=== PATIENT | female | born 1955 | race Caucasian/White ===

== ENCOUNTER 2017-08-26 12:46 | Day surgery (SDC) | payer OTHER, SELFPAY ==
--- NOTE | 2017-08-24 09:56 | EKG12_ITS ---
Test Reason : PRE-OP Blood Pressure : / mmHG Vent. Rate : 058 BPM Atrial Rate : 058 BPM P-R Int : 176 ms QRS Dur : 086 ms QT Int : 422 ms P-R-T Axes : 040 024 018 degrees QTc Int : 414 ms Sinus bradycardia Poor R wave progression Confirmed by ESTER PEÑA, BOB ([id number]), video news editor WALT MANZO ([id number]) on 08/26/2017 2:41:24 PM Referred By: Jane Mckeon Confirmed By:BOB NORMAN MD
[2017-08-24 11:23] LABS: Hematocrit 41.8 % (37-47); Hemoglobin 13.9 g/dl (12.0-15.0); Mean Corp Hgb Conc 33.3 g/gl (32-36); Mean Corpuscular Hgb 29.4 pg (27.0-32.0); Mean Corpuscular Volume 88.4 fL (81-99); Mean Platelet Vol. 10.7 fl (6.2-12.0); Platelet Count 272 K/mm3 (150-450); RBC Distribution Width CV 13.1 % (11.6-14.6); RBC Distribution Width SD 42.1 fl (35.1-43.9); Red Blood Count 4.73 M/mm3 (4.2-5.4); White Blood Count 6.5 K/mm3 (4.4-11.0)
[2017-08-24 11:26] LABS: Prothrombin Time (Protime)PT. 12.9 SECONDS (11.7-14.9)
[2017-08-24 11:27] LABS: Partial Thromboplast Time 28.8 Seconds (24.1-36.2)
[2017-08-24 11:37] LABS: Scan Indicated on CBC? Y/N NO
[2017-08-24 11:51] LABS: Anion Gap 4 (5-15); BUN 15 mg/dL (7-18); BUN/Creat Ratio 15.1 RATIO (10-20); Calcium,Total 9.7 mg/dL (8.5-10.1); Chloride 105 mmol/L (98-107); Creatinine, Serum 0.99 mg/dL (0.55-1.02); EST Glomerular Filtration Rate 60 mL/min (>60); Est Glom Filt Rate - Afr Amer 73 mL/min (>60); Glucose 98 mg/dL (74-106); Potassium 3.7 mmol/L (3.5-5.1); Sodium Level 142 mmol/L (136-145)
[2017-08-26] VITALS (11 sets, daily range): BP systolic 118–168; BP diastolic 62–93; PULSE 63–94; RESP 16; TEMP 36.7–37.2; O2SAT 93–100; BMI 30.9
--- NOTE | 2017-08-26 14:05 | HYST_PTH ---
PATIENT: SUSAN RINCON LOC: [facility] [place] U#:[id number] AGE/SX: 62/F ROOM: RE08/26/[address]: Dr. Jane Mckeon MD : [id number] BED: DIS: 08/27/2017 SPEC #: [id number] RECD: 08/26/17 18:09 STATUS: CASSIE BRANDConnie #: [id number] AVERY: 08/26/17 14:[address]: Jane Mckeon DEPT: SURGICAL PATHOLOGY RECD BY: Armando Vilchis ENTERED: 08/27/17 11:04 SP TYPE: HYSTERECT OTHR DR: Dr. Inge Myles MD Tissues: Uterus, NOS Procedures: Surgery Specimen Level V HEADER OPERATION: Hysterectomy, Lap-assisted vaginal, BSO PRE-OP DIAGNOSIS: Personal history of breast cancer, cancer phobia TISSUE SUBMITTED: Uterus, tubes and ovaries MICROSCOPIC DIAGNOSIS Uterus, bilateral fallopian tubes and ovaries, vaginal hysterectomy and bilateral salpingo-oophorectomy: Cervix ? mild chronic inflammation. Endometrium ? cystic atrophic endometrium. Myometrium ? leiomyomas (0.5 and 5 cm in greatest dimension). Bilateral fallopian tubes - no pathologic diagnosis. Bilateral ovaries - no pathologic diagnosis. See comment. SJ:rg 08/28/17 COMMENT The loculated cystic area adjacent to the left ovary shows dilated blood vessels. MICROSCOPIC DESCRIPTION Slides are reviewed. GROSS DESCRIPTION Received in fixative is one container labeled with the patient's name and designated uterus, tubes and ovaries. The specimen consists of a hysterectomy specimen consisting of uterus, attached right fallopian tube and ovary, detached cervix, detached nodular mass and detached left fallopian tube and ovary. The uterus, detached nodular mass and cervix weigh in aggregate 114 gm. The cervix measures 4 x 2.5 x 2 cm. The ectocervical mucosa is unremarkable. The external os is oval in contour. The endocervical canal measures 4 cm in length and the endocervical mucosa is unremarkable. The body of the uterus measures 6 x 5 x 3.5 cm. The serosal surface is lozano, glistening. The triangular endometrial cavity measures 4 cm in length and 2.5 cm in width. The endometrium is lozano, glistening without any mass lesion and measures 0.1 cm in thickness. Sections of the uterine wall reveal one small nodular mass measuring 0.5 cm in diameter. The uterine wall measures up to 2 cm in thickness. The detached nodule measures 5 x 4 x 3.5 cm. A focal area of defect is noted at the lateral wall of the uterus most likely the site of the detached nodular mass. Sections of this mass reveal lozano whorled cut surfaces without areas of hemorrhage, necrosis or cystic degeneration. The right fallopian tube measures 6 cm in length and 0.5 cm in diameter. The fimbrial end is identified. No tubo-ovarian adhesions are noted. The right ovary measures 3 x 2 x 1 cm. Sections reveal unremarkable cut surfaces. The left fallopian tube measures 7.5 cm in length and 0.5 cm in diameter. The fimbrial end is identified. Focal tubo-ovarian adhesions are identified. The fallopian tube appears to be disrupted in the middle. The left ovary measures 3 x 2 x 1 cm. Sections reveal unremarkable cut surfaces. A multiloculated cyst is noted adjacent to the ovary measuring 1.5 cm in greatest dimension. Director Of Public Relations sections are submitted in 12 cassettes as follows: 1 - anterior cervix, 2 - posterior cervix, 3 & 4 - anterior uterine wall, 5 & 6 - posterior uterine wall, 7 ? smaller intramural mass, 8 & 9 ? detached nodular mass, 10 ? right fallopian tube and ovary, 11 ? left fallopian tube and ovary, 12 ? multiloculated cyst adjacent to the left ovary. / JAMIL:abby 08/27/17 TC:1 CPT: 06378
[2017-08-26] MEDS: Bupiv/Epi 0.5% Mpf 30 ML Vial (15:44)
[2017-08-26] MEDS: Ketorolac 30 MG/ML Syringe IV (20:11)
[2017-08-26] MEDS: Lactated Ringers 1,000 ML 125 ML IV (20:11)
--- NOTE | 2017-08-26 21:01 | PCM.OP.BLANK ---
Problem List (1) Fibroid, uterine Status: Chronic Qualifiers: Uterine leiomyoma location: intramural and subserous Qualified Code(s): D25.1 - Intramural leiomyoma of uterus; D25.2 - Subserosal leiomyoma of uterus Operative Report Date of Procedure: 08/26/17 PROCEDURE: Laparoscopic assisted vaginal hysterectomy. Bilateral salpingectomy Preoperative diagnosis: Personal history of malignant neoplasm of the breast Uterine fibroid Postop diagnosis: Personal history of malignant neoplasm of the breast Uterine fibroid Anesthesia: General DEDE Chairez and Octavio Gregory MD Surgeon: Jane Mckeon MD Assistants Tiara Fletcher, LANCE Greene, LANCE EBL 230 cc Complications: none Drains: Nicole draining clear yellow urine 600 cc for case Fluids: replacement LR Findings: On exam under anesthesia, the cervix appears well supported, parous, with a possible fibroid at anterior lip. At Laparoscopy: the uterus is normal sized, with an intramural and subserosal fibroid at the Right posterior lower uterine segment. There are no significant adhesions in the pelvis , but adhesions were noted between the bowel and the right abdominal sidewall extending from upper abdomen to lower abdomen. There are normal appearing fallopian tubes and ovaries bilaterally. PATH: Uterus, bilateral fallopian tubes . Detached cervix and detached fibroid sent . Narrative account: After the risks, benefits and alternatives of the procedure were reviewed with the patient , informed consent was obtained. The patient was taken to the Operative room with an IV running . She was positioned in the dorsal supine position on the operating table and given general anesthesia. Once asleep she was positioned to the dorsal lithotomy position with the arms tucked at the sides and prepped and draped in the usual sterile fashion. A Nicole catheter was inserted to drain the bladder. The weighted speculum was placed into the vagina and a single tooth tenaculum was placed at the cervix. A Nia cannula was inserted into the cervix and secured into placed with the single - toothed tenaculum. Attention was then turned to the anterior abdominal wall. the delivery table operator's gloves were changed and skin incisions were created at the infraumbilical and suprapubic skin and at a point approximately fci between the suprapubic and infraumbilical skin incisions. Local anesthesia was used to infiltrate the skin where the trocar incision sites were created. A transverse 5 mm infraumbilical skin incision , a transverse 5 mm suprapubic incision and an transverse 5 mm midline incision were created. A Veress needle was inserted in to the peritoneal cavity at the infraumbilical skin incision while maintaining upward traction of the anterior abdominal wall at the umbilicus. There was free drop of saline, free flow of CO2 and low opening pressure noted. Once the intraabdominal pressure had reached approximately 15 mm HG, the Veress needle was removed and a bladeless 5 mm trocar was inserted into the peritoneal cavity. Correct placement was confirmed using the laparoscope. Under direct visualization the other two 5 mm bladeless trocars were inserted into the peritoneal cavity. The fallopian tubes and ovaries were retracted medially and using a LigaSure device the infundibulopelvic ligament was divided at each side. The broad ligament was then divided down to the level of the round ligament on both sides. At this point the laparoscopic portion of the case was completed. The trocars were left in place, but the instruments were removed and gas turned off. A sterile drape was used to cover the abdomen. Attention was then turned to the vaginal portion of the case. The Nia cannula was removed and the single toothed tenaculum repositioned on the cervix. The cervical mucosal was then incised circumferentially using Bovie cautery and a knife. The posterior cul de sac was entered by sharp dissection with Collins scissors and a weighted speculum was placed into the posterior cul se sac. Dissection then was initiated at the anterior cervix to enter the anterior cul se sac. The uterosacral ligaments were clamped bilaterally with curved Bam clamps and the pedicles divided and suture ligated and tagged for later identification. Next the cardinal ligament was clamped bilaterally and divided and suture ligated. Adequate hemostasis was noted. The anterior cul de sac peritoneum was then entered by sharp dissection and a narrow Reba retractor was placed into the anterior cul de sac to retract the bladder out of harm's way for the remainder of the case. The uterine arteries were clamped bilaterally , divided and suture ligated. At this point little descensus was noted due to the shape of the uterus and the lower uterine segment fibroid. The cervix was amputated using a scissors and was set aside. The uterine serosal overlying the large fibroid at the R posterolateral lower uterine segment was incised and the fibroid shelled out from its capsule and the fibroid was removed from the uterus. Dissection then continued along each side of the uterus. Each pedicle was secured with a Bam clamp, divided and suture ligated until ultimately the uterine fundus was reached. The superior pedicles on each side were secured with a curved Bam clamp and the remaining uterus and attached fallopian tubes were surgically amputated and set aside. The superior pedicle was then suture ligated, then free tied and tagged for identification. The superior pedicles were dry. There was bleeding noted along the posterior vaginal cuff . The peritoneum was then closed with a running purse string suture of 1 Vicryl, incorporating the superior pedicles and uterosacral ligament tags. Excellent hemostasis was noted. The vaginal cuff was then reapproximated using interrupted and figure of eight stitches of 1 Vicryl. Excellent hemostasis was noted. The Nicole was attached to the Nicole bag. and clear yellow urine returned. A second look was performed with the laparoscope: There was some brisk bleeding noted at the L round ligament and this area was grasped with the LigaSure device and cauterized. Excellent hemostasis was noted then at all pedicles and at the vaginal cuff. Russ was sprayed along the cuff and pedicles for additional hemostasis. The pneumoperitoneum was reduced and all instruments and trocars were removed. The skin incisions were closed with 4-0 Monocryl in a subcuticular fashion. Sterile dressings were applied. (Dermabond and op sites) The patient was returned to dorsal supine position and awakened from general anesthesia. She was then transferred to the recovery room bed in stable condition after tolerating the procedure well. Sponge, lap, needle and instrument counts correct times two. Medications given preop and intraoperatively included: Cefotetan 2 gms IV , given supervisor type disk quality control to the operating room , 0.5% Marcaine with 1/200,00 epinephrine was used as a subcutaneous injection at the trocar skin incision sites, and Toradol 30 mg IV x one was given. For a complete listing of medications given preop and intraoperatively, please see the anesthesia record.
[2017-08-26] MEDS: Docusate Sodium 100 MG Capsule PO (21:59)
[2017-08-26] MEDS: Acetaminophen 500 MG Tablet 1000 MG PO (21:59)
[2017-08-26] MEDS: Atorvastatin Calcium 10 MG Tablet PO (22:00)
[2017-08-26] MEDS: 0.9% NaCl Peripheral Flush Adult/Peds IV (22:00)
--- NOTE | 2017-08-26 23:50 | NURSING ---
4 hour post op urine output is 140. Patient encouraged to drink fluids.
[2017-08-27] MEDS: 0.9% NaCl Peripheral Flush Adult/Peds IV (02:35)
[2017-08-27] MEDS: Ketorolac 30 MG/ML Syringe IV ×2 (02:35→08:30)
[2017-08-27] MEDS: Lactated Ringers 1,000 ML 125 ML IV (02:35)
[2017-08-27 05:50] VITALS: BP 130/80; PULSE 69; RESP 16; TEMP 36.9; O2SAT 96
[2017-08-27] MEDS: Acetaminophen 500 MG Tablet 1000 MG PO ×2 (06:03→16:16)
[2017-08-27 07:22] LABS: Hematocrit 34.7 % (37-47); Hemoglobin 11.5 g/dl (12.0-15.0); Mean Corp Hgb Conc 33.1 g/gl (32-36); Mean Corpuscular Hgb 29.6 pg (27.0-32.0); Mean Corpuscular Volume 89.2 fL (81-99); Mean Platelet Vol. 9.7 fl (6.2-12.0); Platelet Count 257 K/mm3 (150-450); RBC Distribution Width CV 12.8 % (11.6-14.6); RBC Distribution Width SD 41.5 fl (35.1-43.9); Red Blood Count 3.89 M/mm3 (4.2-5.4); Scan Indicated on CBC? Y/N NO; White Blood Count 10.4 K/mm3 (4.4-11.0)
--- NOTE | 2017-08-27 08:07 | PCM.PROGNOTE ---
Subjective: POD#1 RYAN JUÁREZ. Doing well. Pain control adequate with Toradol and Tylenol. Hoping to avoid narcotics d/t constipation on these in past. She takes Ibuprofen prn at home for pain. Nicole out but not voiding yet. Neg flatus. No N/V. using K pad prn also for cramping. - Physical Exam General: Alert, Oriented x3, Cooperative, No apparent distress HEENT: Atraumatic Neck: Supple Abdomen: Soft Skin: Incision - L/S incisions CDI. Old dischg noted at op site at umbilicus, reinforced dressing by RN last night. Psych/Mental Status: Normal Affect Vital Signs Temp Pulse Resp BP Pulse Ox 98.5 F 69 16 130/80 H 96 08/27/17 05:50 08/27/17 05:50 08/27/17 05:50 08/27/17 05:50 08/27/17 05:50 Oxygen Delivery Method Room Air Weight: 89.5 kg Body Mass Index (BMI) 30.9 Intake and Output for Last 24 Hours 08/25/23 08//08/27/17 23:59 23:59 23:59 Intake Total 2647 / 2647 Output Total 780 / 780 210 / 210 Balance 1867 / 1867 -210 / -210 Laboratory Tests Past 24 Hrs 08/27/17 06:20 WBC 10.4 RBC 3.89 L Hgb 11.5 L Hct 34.7 L MCV 89.2 MCH 29.6 MCHC 33.1 RDW 12.8 RDW Differential 41.5 Plt Count 257 MPV 9.7 Assessment/Plan POD#1 RYAN JUÁREZ Stable postop. Voiding trial in progress. Inc diet and activity as tolerated. May shower. D/C home today when criteria met.
[2017-08-27 08:08] VITALS: O2SAT 95
--- NOTE | 2017-08-27 08:10 | PCM.DC.VHY ---
Discharge Diet: No Restrictions Discharge Activity: May not drive while taking narcotic pain medications., May Shower, May Take a Tub Bath May resume sexual activity in: 4-6 weeks Call your doctor if your incision/area has: Continuous Slow Oozing, Sudden Increased Bleeding, Increased Pain/ Swelling, Increased Redness, Foul Smelling Discharge Call your doctor if you observe: Fever of 101 or Higher, Inability to have a bowel movement, Using more than one pad per hour, Calf discomfort, Uncontrolled pain Change Dressing in (Days):: 3 Remove Dressing in (days):: 3 Cleanse incision/area with: Soap & Water, Keep Dressing Clean & Dry Additional Instructions: 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 Avoid heavy lifting more than 25 # , and nothing in vagina for 4-6 wk postoperatively to allow healing. Allergies/Adverse Reactions: Allergies itraconazole [From Sporanox] Adverse Reaction (Severe, Verified 08/18/17 11:02) Rash rosuvastatin calcium [From Crestor] Adverse Reaction (Intermediate, Verified 08/18/17 11:02) Other muscle ache Medications to take at Discharge Lisinopril/Hydrochlorothiazide [Zestoretic 20-12.5 mg Tablet] 1 each PO DAILY 11/15/14 Multivitamins,Ther W-Minerals [Multivitamin With Minerals] 1 tablet PO DAILY 11/15/14 Ubidecarenone [Coq10] 50 mg PO DAILY 11/15/14 Aspirin [Aspirin, Baby] 81 mg PO DAILY 09/29/16 B Complex with Vitamin C 1 tab PO DAILY 09/29/16 Atorvastatin Calcium [Lipitor] 10 mg PO DAILY 12/09/16 Metformin HCl [Glucophage] 500 mg PO DAILY 12/09/16 Venlafaxine HCl [Effexor Xr] 37.5 mg PO DAILY #90 cap.er.24h 06/09/17 Anastrozole 1 tab PO DAILY #90 tablet 08/10/17 Calcium Carbonate [Calcium] 500 mg PO DAILY 08/18/17 Acetaminophen [Tylenol] 1,000 mg PO Q8 tablet 08/27/17 Docusate Sodium [Colace] 100 mg PO BID 14 Days #30 cap 08/27/17 Hydrochlorothiazide 12.5 mg PO DAILY capsule 08/27/17 Ibuprofen [Motrin] 800 mg PO Q8H PRN PRN tablet 02/22/18 Lisinopril [Zestril] 20 mg PO DAILY tablet 08/27/17 TraMADol [Ultram] 50 mg PO Q6H PRN PRN #30 tablet 08/27/17 The following prescriptions were given: TraMADol [Ultram] 50 mg PO Q6H PRN PRN #30 tablet PRN Reason: Moderate Pain (4-5/10) Docusate Sodium [Colace] 100 mg PO BID 14 Days #30 cap Primary Care Physician: Inge Myles [Primary Care Provider] - Please Follow Up With: Jane Mckeon MD - [phone] When: In two weeks as scheduled for postoperative follow up. Proposed Discharge Date: 08/27/17
--- NOTE | 2017-08-27 08:18 | DCINST_ITS ---
Discharge Diet: No Restrictions Discharge Activity: May not drive while taking narcotic pain medications., May Shower, May Take a Tub Bath May resume sexual activity in: 4-6 weeks Call your doctor if your incision/area has: Continuous Slow Oozing, Sudden Increased Bleeding, Increased Pain/ Swelling, Increased Redness, Foul Smelling Discharge Call your doctor if you observe: Fever of 101 or Higher, Inability to have a bowel movement, Using more than one pad per hour, Calf discomfort, Uncontrolled pain Change Dressing in (Days):: 3 Remove Dressing in (days):: 3 Cleanse incision/area with: Soap & Water, Keep Dressing Clean & Dry Additional Instructions: 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 Avoid heavy lifting more than 25 # , and nothing in vagina for 4-6 wk postoperatively to allow healing. Allergies/Adverse Reactions: Allergies itraconazole [From Sporanox] Adverse Reaction (Severe, Verified 08/18/17 11:02) Rash rosuvastatin calcium [From Crestor] Adverse Reaction (Intermediate, Verified 11:02) Other muscle ache Medications to take at Discharge Lisinopril/Hydrochlorothiazide [Zestoretic 20-12.5 mg Tablet] 1 each PO DAILY Multivitamins,Ther W-Minerals [Multivitamin With Minerals] 1 tablet PO DAILY Ubidecarenone [Coq10] 50 mg PO DAILY 11/15/14 Aspirin [Aspirin, Baby] 81 mg PO DAILY 09/29/16 B Complex with Vitamin C 1 tab PO DAILY 09/29/16 Atorvastatin Calcium [Lipitor] 10 mg PO DAILY 12/09/16 Metformin HCl [Glucophage] 500 mg PO DAILY 12/09/16 Venlafaxine HCl [Effexor Xr] 37.5 mg PO DAILY #90 cap.er.24h 06/09/17 Anastrozole 1 tab PO DAILY #90 tablet 08/10/17 Calcium Carbonate [Calcium] 500 mg PO DAILY 08/18/17 Acetaminophen [Tylenol] 1,000 mg PO Q8 tablet 08/27/17 Docusate Sodium [Colace] 100 mg PO BID 14 Days #30 cap 08/27/17 Hydrochlorothiazide 12.5 mg PO DAILY capsule 08/27/17 Ibuprofen [Motrin] 800 mg PO Q8H PRN PRN tablet 02/22/18 Lisinopril [Zestril] 20 mg PO DAILY tablet 08/27/17 TraMADol [Ultram] 50 mg PO Q6H PRN PRN #30 tablet 08/27/17 The following prescriptions were given: TraMADol [Ultram] 50 mg PO Q6H PRN PRN #30 tablet PRN Reason: Moderate Pain (4-5/10) Docusate Sodium [Colace] 100 mg PO BID 14 Days #30 cap Primary Care Physician: Inge Myles [Primary Care Provider] - Please Follow Up With: Jane Mckeon MD - [phone] When: In two weeks as scheduled for postoperative follow up. Proposed Discharge Date: 08/27/17
[2017-08-27] MEDS: Aspirin 81 MG TAB.CHEW PO (08:40)
[2017-08-27] MEDS: Venlafaxine XR 37.5 MG Capsule PO (08:40)
[2017-08-27] MEDS: Docusate Sodium 100 MG Capsule PO (08:41)
[2017-08-27] MEDS: Lisinopril 20 MG Tablet PO (08:41)
[2017-08-27] MEDS: HYDROCHLOROTHIAZIDE 12.5 MG CAPSULE PO (08:41)
[2017-08-27] MEDS: Polyethylene Glycol 3350 17 GM PACKET PO (08:41)
[2017-08-27 09:15] VITALS: BP 151/78; PULSE 71; RESP 18; TEMP 36.8; O2SAT 96
[2017-08-27 13:40] VITALS: BP 147/77; PULSE 68; RESP 16; TEMP 37.2; O2SAT 97
[2017-08-27] MEDS: Ketorolac 10 MG Tablet PO (16:16)
== END 2017-08-27 08:20 | disposition home or self-care (01) ==
LOC: SDC 12:47 → AC 12:47 → MS2 16:03
PROVIDERS: Family Provider Family Medicine; PCP Family Medicine; Visit Provider Obstetrics & Gynecology
PROC: 0UT9FZZ Resection of Uterus, Via Natural or Artificial Opening With Percutaneous Endoscopic Assistance (ICD-10-PCS; CPT 58552; principal; 2017-08-26 13:40)
DX: D25.2 Subserosal leiomyoma of uterus (principal); D25.1 Intramural leiomyoma of uterus; N72 Inflammatory disease of cervix uteri; I10 Essential (primary) hypertension; G47.30 Sleep apnea, unspecified; E78.00 Pure hypercholesterolemia, unspecified; R73.03 Prediabetes; F32.9 Major depressive disorder, single episode, unspecified; Z85.3 Personal history of malignant neoplasm of breast; Z79.84 Long term (current) use of oral hypoglycemic drugs; Z79.899 Other long term (current) drug therapy; Z79.82 Long term (current) use of aspirin
CPT/HCPCS: 58552; 36415; 80048; 85027; 85610; 85730; 86850; 86900; 88307; 93005; 97802; J7120; A4216; J2405

== ENCOUNTER → 2018-04-07 08:25 | Outpatient (CLI) | payer OTHER, SELFPAY ==
--- NOTE | 2018-04-07 08:31 | BD_ITS ---
STUDY: DUAL ENERGY X-RAY ABSORPTIOMETRY / DXA REASON FOR EXAM: Female, 63 years old. Postmenopausal screening TECHNIQUE: Bone Mineral Density (BMD) measurements of lumbar spine and bilateral hips were obtained. COMPARISON: 2015 FINDINGS: Lumbar Spine (L1-L4): g/cm2 (1.151) / T-score (-0.2) / Z-score (1.2) Findings are suggestive of normal bone density with a low fracture risk. Left Femur Total: g/cm2 (1.084) / T-score (0.6) / Z-score (1.6) Left Femoral Neck: g/cm2 (0.929) / T-score (-0.8) / Z-score (0.5) Right Femur Total: g/cm2 (1.034) / T-score (0.2) / Z-score (1.2) Right Femoral Neck: g/cm2 (0.939) / T-score (-0.7) / Z-score (0.6) The T-Scores on the most recent prior examination were: Lumbar Spine (L1-L4): There has been worsening of bone density since the previous examination. BD/Dexa Bone Density Study IMPRESSION: The patient is considered normal as outlined below according to World Toni Organization (WHO) criteria with a low fracture risk. There has been worsening of bone density since the previous examination. Reference Information: The T-score is the number of standard deviations above or below the standard which is normal for young adults at their peak bone mineral density. The World Health Organization (WHO) interprets the T-scores as follows: Above -1 Normal bone density Between -1 and -2.5 Osteopenia Equal to / or below -2.5 Osteoporosis As a practical clinical guideline, osteopenia may be graded as follows: Mild -1 through -1.5 Moderate -1.6 through -2.0 Severe -2.1 through -2.4 The Z-score is the number of standard deviations above or below age-matched controls. A Z-score of less than -1.5 would be considered abnormal. References: 1. NIH Osteoporosis and Related Bone Diseases http://www.osteo.org 2. International Society for Clinical Densitometry http://www.iscd.org 3. National Osteoporosis Foundation http://www.nof.org Electronically Signed: Torey Da Silva MD at 15:41 EDT , Service support ,
== END ==
PROVIDERS: Family Provider Family Medicine; PCP Family Medicine; Visit Provider Nurse Practitioner Family
DX: Z13.820 Encounter for screening for osteoporosis (principal); Z79.811 Long term (current) use of aromatase inhibitors
CPT/HCPCS: 77080

== ENCOUNTER → 2021-11-28 | Outpatient (CLI) | payer MEDICARE, OTHER, SELFPAY ==
--- NOTE | 2021-11-28 08:28 | NM_ITS ---
CLINICAL: Female, 66 years old. Left hip pain, Breast cancer WHOLE BODY NUCLEAR BONE SCAN TECHNIQUE: Following the IV administration of 26.7 mCi of Tc MDP, whole body bone imaging was performed with a gamma camera following a three hour delay. COMPARISON STUDIES : NM - None. CR - 11/18/2021 CT - Not available for review at this time. MR - Not available for review at this time. US - Not available for review at this time. FINDINGS: There is a normal concentration of radiopharmaceutical throughout the axial and appendicular skeletal system without either a focal decrease or increase in uptake. There is some increased uptake within the sternoclavicular joints, acromioclavicular joints, knee joints consistent with arthrosis. There is some increased uptake involving the the left greater trochanter likely related to gluteal tendinosis. Correlation with MRI is recommended to exclude a radiographically occult lesion of the greater trochanter. Normal concentration reform school by the kidneys with excretion into the bladder. NM/Bone Scan Whole Body IMPRESSION: 1. Increased uptake at the greater trochanter of the left femur likely from gluteal tendinosis and correlation with MRI is recommended to exclude a radiographically occult marrow replacing lesion. 2. No other scintigraphic evidence of metastatic disease to Electronically Signed: Chuy Crowder MD at 13:08 EDT ,
== END | disposition home or self-care (01) ==
LOC: NM 08:27
PROVIDERS: PCP Family Medicine; Referring Provider Nurse Practitioner Family; Visit Provider Nurse Practitioner Family
DX: M25.552 Pain in left hip (principal); Z85.3 Personal history of malignant neoplasm of breast
CPT/HCPCS: 78306; A9503

== ENCOUNTER → 2021-12-11 | Outpatient (CLI) | payer MEDICARE, OTHER, SELFPAY ==
--- NOTE | 2021-12-11 06:31 | MRI_ITS ---
STUDY: MRI LEFT HIP WITH AND WITHOUT CONTRAST REASON FOR EXAM: Left hip pain, breast cancer, abnormal bone scan. TECHNIQUE: Standardized fat and water weighted pulse sequences were obtained in all 3 orthogonal planes before and after intravenous administration of 17 mL of Clariscan. COMPARISON: Bone scan 11/28/2021, radiographs 11/18/2021. FINDINGS: Normal hip joint without articular joint space narrowing. Normal acetabulum. Normal labrum. Normal femoral head and neck. There is mild reactive bone edema in the left greater trochanter (inversion recovery coronal image 16). There is a tear of the anterior left gluteus medius tendon (inversion recovery coronal image 15) and partial tear of the posterior aspect of the left gluteus medius tendon (inversion recovery coronal image 13). There is a partial tear of the left gluteus minimus tendon (inversion recovery coronal image 17). There is contrast enhancement of the left greater trochanteric bursitis (postcontrast T1 coronal images 6-10). Normal superior and inferior pubic rami. Normal pubic symphysis. Normal ischial tuberosity. There is mild tendinosis of the conjoint left hamstring tendon (T2 axial image 18). Normal visualized iliac wing, sacroiliac joint, and sacral ala. There is atrophy with partial fat replacement of the left gluteus minimus muscle (T1 coronal images 17-19). There is a cystic lesion of the right kidney, incompletely included in the [id number] (inversion recovery coronal images 15-19). MRI/Lower Ext Joint Only W/WO Cont IMPRESSION: Tear of the anterior left gluteus medius tendon, partial tear of the posterior left gluteus tendon and partial tear of the left gluteus minimus tendon. Left greater trochanteric bursitis with mild reactive bone edema in the left greater trochanter corresponding to abnormal bone scan. Mild tendinosis of the left conjoint tendon. Atrophy of the left gluteus minimus muscle. Cystic lesion of the right kidney, incompletely included in the [id number]. Electronically Signed: Juaquin Cortez MD at 8:53 EDT ,
== END | disposition home or self-care (01) ==
PROVIDERS: PCP Family Medicine; Referring Provider Nurse Practitioner Family; Visit Provider Nurse Practitioner Family
DX: M25.551 Pain in right hip (principal); R94.8 Abnormal results of function studies of other organs and systems; Z85.3 Personal history of malignant neoplasm of breast
CPT/HCPCS: 73723; A9575

== ENCOUNTER → 2022-01-01 | Outpatient (CLI) | payer MEDICARE, OTHER, SELFPAY ==
--- NOTE | 2022-01-01 07:46 | CT_ITS ---
STUDY: CT ABDOMEN AND PELVIS WITH CONTRAST REASON FOR EXAM: Female, 66 years old. Questionable right renal abnormality. Prior partial right mastectomy for breast cancer. RADIATION DOSAGE (If Supplied By Facility): CTDIvol = ( 21.76 ) mGy, DLP = ( 1109.46 ) mGycm TECHNIQUE: Transaxial images were obtained from the dome of the diaphragm to the symphysis pubis without oral contrast. IV 100mL Isovue-300 was administered. Sagittal and coronal images were reconstructed. Individualized dose optimization techniques were used for this CT. COMPARISON: None. FINDINGS: The visualized lung bases are unremarkable. The visualized portions of the heart are within normal limits. There is decreased attenuation of the liver consistent with steatosis. There are surgical clips in the gallbladder fossa consistent with a prior cholecystectomy. Minimal degree of central intrahepatic biliary ductal dilatation most likely secondary to prior cholecystectomy. Normal spleen. Normal pancreas. Normal bilateral adrenal glands. There is a 5.7 cm x 6 cm cyst in the upper midportion of the right kidney. This corresponds to the MRI findings. Normal left kidney. Normal visualized stomach. Normal small intestine. Normal colon. The appendix is visualized and appears normal. There is scattered atherosclerotic calcification of the abdominal aorta, without a demonstrated aneurysm. Normal inferior vena cava. Normal retroperitoneum. Normal urinary bladder. There is absence of the uterus consistent with a prior hysterectomy. Normal abdominal wall. Disc space narrowing and degeneration at the L5-S1 level. Exaggerated lordosis of the lumbar spine. CT/Abdomen/Pelvis WITH Contrast IMPRESSION: 5.7 cm x 6 cm cyst in the upper midportion of the right kidney. Status post hysterectomy. Status post cholecystectomy with mild degree of central intrahepatic biliary ductal dilatation. Electronically Signed: Juanjose Power MD at 13:30 EDT ,
[2022-01-01 08:01] LABS: CREATININE FINGERSTICK < 0.9 mg/dL (0.55-1.02); EGFR FINGERSTICK > 60.0000 mL/min (>60)
== END | disposition home or self-care (01) ==
LOC: CT 07:45
PROVIDERS: PCP Family Medicine; Referring Provider Nurse Practitioner Family; Visit Provider Nurse Practitioner Family
DX: N28.9 Disorder of kidney and ureter, unspecified (principal)
CPT/HCPCS: 74177; Q9967

== ENCOUNTER → 2022-06-23 | Outpatient (CLI) | payer MEDICARE, OTHER, SELFPAY ==
--- NOTE | 2022-06-23 12:50 | US_ITS ---
INDICATION: renal cyst -- *right kidney only EXAMINATION: Ultrasound US Kidney(s) complete (eg, kidneys and bladder) TECHNIQUE: Sanchez scale and color doppler images were obtained of the kidneys. COMPARISON: Contrast-enhanced CT abdomen and pelvis from 01/01/2022. FINDINGS: RIGHT KIDNEY: Right kidney measures 10.2 x 5.4 x 6.9 cm with cortical thickness of 1.2 cm. There is no hydronephrosis. Large anechoic cyst at the enteric, interpolar right kidney measures 6.7 x 4.3 x 5.8 cm. Cyst is avascular with no wall thickening, nodularity or calcifications. LEFT KIDNEY: Left kidney measures 10.8 x 5.4 x 6 oh meter with cortical thickness 1.8 cm. There is no hydronephrosis. No shadowing calculus, focal lesion or perinephric collection is demonstrated. URINARY BLADDER: Partially distended urinary bladder with volume of 85 mL, with no intraluminal filling defects. US/Kidney and Bladder IMPRESSION: Large simple appearing 6.7 cm right renal cyst. Electronically Signed: Abdon Webster MD at 1:37 EST ,
== END | disposition home or self-care (01) ==
LOC: US 12:50
PROVIDERS: PCP Family Medicine; Visit Provider Nurse Practitioner Family
DX: N28.1 Cyst of kidney, acquired (principal)
CPT/HCPCS: 76770

== ENCOUNTER → 2025-06-26 | Outpatient (CLI) | payer MEDICARE, OTHER, SELFPAY ==
--- NOTE | 2025-06-26 13:37 | MRI_ITS ---
PROCEDURE: BRAIN W/WO CONTRAST 06/26/2025 REASON FOR EXAM: MENINGIOMA TECHNIQUE: Procedure Code: [id number] Modality: MR Procedure: BRAIN W/WO CONTRAST Multiplanar and multisequence images were obtained. CONTRAST: Clariscan VOLUME: 8 mL COMPARISON: None FINDINGS: Brain: A 6 x 7 x 8 mm dural-based homogeneously enhancing extra-axial mass in the left parietal lobe consistent with meningioma. Severe cerebral atrophy and chronic periventricular white matter disease. No restricted diffusion. No hemorrhage. No mass-effect or midline shift. The orbits are within normal limits. The craniocervical junction is unremarkable. Diffusion: No restricted diffusion. Ventricles: No ventriculomegaly. Major Intracranial Vessels: Patent Sinuses: Clear Mastoids: Clear. MRI/Brain W/WO Contrast IMPRESSION: A 6 x 7 x 8 mm dural-based homogeneously enhancing extra-axial mass in the left parietal lobe consistent with meningioma. No additional meningiomas. Severe cerebral atrophy and chronic periventricular white matter disease. No re stricted diffusion. Otherwise, no acute bony abnormalities. Reading Location: [id number]
== END | disposition home or self-care (01) ==
LOC: OPMRI 13:12
PROVIDERS: PCP Family Medicine; Referring Provider Nurse Practitioner Family; Visit Provider Nurse Practitioner Family
DX: D32.9 Benign neoplasm of meninges, unspecified (principal)
CPT/HCPCS: 70553; A9575